=== PATIENT | female | born 1940 | race Caucasian/White ===

== ENCOUNTER 2020-03-30 16:14 | Inpatient (IN) | payer MEDICARE, SELFPAY ==
[2020-03-30] VITALS (7 sets, daily range): BP systolic 140–162; BP diastolic 56–81; PULSE 72–97; RESP 14–18; TEMP 36.4–36.9; O2SAT 97–99; BMI 20.2; BMI 19.5
--- NOTE | 2020-03-30 16:37 | EKG12_ITS ---
Test Reason : Blood Pressure : / mmHG Vent. Rate : 064 BPM Atrial Rate : 064 BPM P-R Int : 154 ms QRS Dur : 088 ms QT Int : 420 ms P-R-T Axes : 059 015 092 degrees QTc Int : 433 ms Normal sinus rhythm Normal ECG Confirmed by WILL BERMUDEZ MD ([id number]), editor house organ BISHOP LYNN ([id number] on 04/03/2020 2:22:12 PM Referred By: Walt Gates Confirmed By:WILL BERMUDEZ MD
--- NOTE | 2020-03-30 16:38 | ED.VIS.GEN ---
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 She is not able to give history. There is no family members present to speak with. She apparently was incontinent per paramedics. She acknowledges she has had weight loss. She does not know how much or over what time.. She states she is not eating well. She denies everything else. Prior similar symptoms: No Recent Illness/Hospitalization: No - Past Medical History (1) Unknown cause of injury Status: Acute Past Medical History - Allergies and Home Meds Allergies/Adverse Reactions: Allergies No Known Allergies Allergy (Verified 03/30/20 16:25) Primary Care Physician: Agus Doherty DO [Primary Care Provider] - Lives: Alone Smoking Status: Never smoker Review of Systems ROS: Unable to Obtain General: Reports: Weight loss Physical Exam Vital Signs/Narrative: Vital Signs Temp Pulse Resp BP Pulse Ox 03/30/20 16:21 98.5 F 73 16 162/81 H 98 03/30/20 16:16 98.5 F 84 16 162/81 H 98 Inital Vital Signs reviewed: Yes General: Well developed, Cachectic Head: Normocephalic, Atraumatic. Negative for: Trauma, Tenderness Eyes: Perrl, EOMI. Negative for: Pale conjunctiva, Scleral icterus ENT: No rhinorrhea, TM's clear, Dry mucous membranes. Negative for: Nasal congestion Neck: Supple, Nontender, No lymphadenopathy, No JVD Cardiovascular: Regular rate, Regular rhythm, Normal S1, Normal S2, Murmur - 82?3 systolic murmur heard best over the left lower sternal area Respiratory: No distress, Chest nontender, Rales - Left base, Retractions. Negative for: CTA bilaterally Abdomen: Soft, Nontender, Nondistended, Pulsatile mass - Aorta is pulsatile because patient is very thin. The aorta is not dilated, however. Rectal: Deferred Back: Nontender, Normal Inspection Extremities: Nontender, Edema Skin: Normal color, No rash. Negative for: Cyanosis, Diaphoresis, Jaundice Neurological: Cranial nerves II-XII grossly intact, Normal Strength, Normal Sensation, Normal DTR. Negative for: Alert, Oriented x3, Normal Gait Psychological: Depressed Diagnostic/Tx/Re-eval Impressions Brain CT 03/30/20 16:42 IMPRESSION: Chronic involutional changes of the brain. No acute hemorrhage Electronically Signed: Diaz Bergman MD at 17:19 EDT , Service support , Chest X-Ray 03/30/20 17:00 IMPRESSION: Chronic interstitial changes, no superimposed acute pulmonary process Electronically Signed: Diaz Bergman MD at 17:19 EDT , Service support , 03/30/20 16:42 CT Head [Brain/Head without Contrast] [CT] Stat 03/30/20 17:00 Chest 1 View (Portable) [RAD] Stat Laboratory Results 03/30/20 03/30/20 03/30/20 16:25 16:25 16:25 WBC 9.6 RBC 5.30 Hgb 16.1 H Hct 50.9 H MCV 96.0 MCH 30.4 MCHC 31.6 L RDW Std Deviation 49.1 H RDW Coeff of [place] 14.1 Plt Count 172 MPV 11.4 Immature Gran % (Auto) 0.700 Neut % (Auto) 82.8 H Lymph % (Auto) 8.2 L [place] % (Auto) 8.1 Eos % (Auto) 0.0 Baso % (Auto) 0.2 Absolute Neuts (auto) 7.9 H Absolute Lymphs (auto) 0.78 L Nucleated RBC % 0 PT 14.0 INR 1.1 APTT 28.0 Sodium 145 Potassium 4.2 Chloride 110 H Carbon Dioxide 25.0 Anion Gap 10 BUN 35 H Creatinine 0.72 Estim Creat Clear Calc 39.77 Est GFR (MDRD) Af Amer 101 Est GFR (MDRD) Non-Af 83 BUN/Creatinine Ratio 48.9 H Glucose 132 H Lactic Acid Calcium 9.5 Total Bilirubin 0.60 AST 22 ALT 22 Alkaline Phosphatase 84 Total Protein 7.4 Albumin 3.2 Globulin 4.2 Albumin/Globulin Ratio 0.8 L Urine Color Urine Clarity Urine pH Ur Specific [place] Urine Protein Urine Glucose (UA) Urine Ketones Urine Occult Blood Urine Nitrite Urine Bilirubin Urine Urobilinogen Ur Leukocyte Esterase Urine RBC Urine WBC Ur Squamous Epith Cells Urine Bacteria Urine Mucus 03/30/20 03/30/20 16:45 18:25 WBC RBC Hgb Hct MCV MCH MCHC RDW Std Deviation RDW Coeff of [place] Plt Count MPV Immature Gran % (Auto) Neut % (Auto) Lymph % (Auto) [place] % (Auto) Eos % (Auto) Baso % (Auto) Absolute Neuts (auto) Absolute Lymphs (auto) Nucleated RBC % PT INR APTT Sodium Potassium Chloride Carbon Dioxide Anion Gap BUN Creatinine Estim Creat Clear Calc Est GFR (MDRD) Af Amer Est GFR (MDRD) Non-Af BUN/Creatinine Ratio Glucose Lactic Acid 2.1 H* Calcium Total Bilirubin AST ALT Alkaline Phosphatase Total Protein Albumin Globulin Albumin/Globulin Ratio Urine Color Yellow Urine Clarity Clear Urine pH 6.0 Ur Specific [place] 1.030 Urine Protein 30 H Urine Glucose (UA) Normal Urine Ketones 150 H Urine Occult Blood 50 H Urine Nitrite Negative Urine Bilirubin Negative Urine Urobilinogen Normal Ur Leukocyte Esterase Negative Urine RBC 0-5 SEEN Urine WBC 0 SEEN Ur Squamous Epith Cells 0 SEEN Urine Bacteria 0 SEEN Urine Mucus 0 SEEN [place] infectious work-up is unremarkable. Patient's lactate elevated 2.1. Etiology of the lactic acidosis unknown. - EKG Initial EKG Interpretation: Sinus Rhythm - Sinus rhythm with ventricular rate of 64. [place] interval 154 ms. QRS duration 88 ms. QT duration 420 ms. [place] is normal. EKG is normal. - Medical Decision Making Presents with acute change in mental status. This may be due to metabolic cause, infectious cause or ELECTRICAL TRYOUT PERSON. [employer] blood work was obtained as well as UA, chest x-ray and CAT scan of the head. ED Disposition - Plan for ED Patient: Disposition: Acute Care Hospital [facility] Diagnosis: Altered mental status, Lactic acidosis, Weight loss, abnormal, Failure to thrive Referrals: Agus Doherty DO [Primary Care Provider] -
--- NOTE | 2020-03-30 16:42 | CT_ITS ---
STUDY: CT BRAIN WITHOUT CONTRAST REASON FOR EXAM: Female, 79 years old. INCREASED CONFUSION, INCONTINENT RADIATION DOSAGE (If Supplied By Facility): CTDIvol = ( 44.99 ) mGy, DLP = ( 748.30 ) mGycm TECHNIQUE: Transaxial CT imaging of the brain was performed without administration of intravenous contrast material. Individualized dose optimization techniques were used for this CT. COMPARISON: No relevant priors. FINDINGS: Normal soft tissue structures. Normal calvarium. There is mild cerebral atrophy with widening of the extra-axial spaces and ventricular dilatation. There are areas of decreased attenuation within the white matter tracts of the supratentorial brain, consistent with microvascular disease changes. Normal basal ganglia and thalami. Normal brainstem. Normal cerebellum. There is no intracranial hemorrhage. There are no findings of an acute ischemic infarction. Normal visualized paranasal sinuses. CT/Brain/Head without Contrast IMPRESSION: Chronic involutional changes of the brain. No acute hemorrhage Electronically Signed: Diaz Bergman MD at 17:19 EDT , Service support ,
[2020-03-30 16:56] LABS: Absolute Lymphocyte Count 0.78 X10^3/uL (0.83-4.51); Absolute Neutrophil Count 7.9 X10^3/uL (2.0-7.7); Basophil# 0.02 X10^3/uL; Basophil% 0.2 % (0-1); Hematocrit 50.9 % (37-47); Hemoglobin 16.1 g/dL (12.0-15.0); Lymphocyte # 0.78 X10^3/ul (4.0); Lymphocyte % 8.2 % (19-41); Mean Corp Hgb Conc 31.6 g/dL (32-36); Mean Corpuscular Hgb 30.4 pg (27.0-32.0); Mean Platelet Vol. 11.4 fl (6.2-12.0); Monocyte# 0.77 X10^3/uL; Monocyte% 8.1 % (0-10); NRBC Flagged by Analyzer 0 % (0-5); Neutrophil # 7.91 X10^3/uL (2.7-7.7); Neutrophil % 82.8 % (47-70); Platelet Count 172 K/mm3 (150-450); RBC Distribution Width CV 14.1 % (11.6-14.6); RBC Distribution Width SD 49.1 fl (35.1-43.9); White Blood Count 9.6 K/mm3 (4.4-11.0)
--- NOTE | 2020-03-30 17:00 | RAD_ITS ---
STUDY: X-RAY CHEST REASON FOR EXAM: Female, 79 years old. CONFUSION TECHNIQUE: Single AP portable view of the chest. COMPARISON: None. FINDINGS: Chronic interstitial changes in both lung crane without a superimposed acute pulmonary process. There is no demonstrated pleural abnormality. Normal size heart. Normal mediastinum and nereida. Normal visualized pulmonary arteries. Normal visualized aortic arch and descending thoracic aorta. There are diffuse degenerative changes of the visualized thoracic spine. There is degenerative osteoarthritis of the bilateral shoulders. There is no demonstrated abnormality of the visualized soft tissue structures of the upper abdomen. RAD/Chest 1 View (Portable) IMPRESSION: Chronic interstitial changes, no superimposed acute pulmonary process Electronically Signed: Diaz Bergman MD at 17:19 EDT , Service support ,
[2020-03-30 17:09] LABS: ALB/GLOB Ratio 0.8 RATIO (0.9-2.4); AST(SGOT) 22 U/L (15-37); Alanine Aminotransfer ALT/SGPT 22 U/L (13-56); Albumin, Serum 3.2 g/dL (3.2-5.0); Alkaline Phosphatase 84 U/L (45-117); Anion Gap 10 (5-15); BUN 35 mg/dL (7-18); BUN/Creat Ratio 48.9 RATIO (10-20); Calcium,Total 9.5 mg/dL (8.5-10.1); Chloride 110 mmol/L (98-107); Creatinine, Serum 0.72 mg/dL (0.55-1.02); EST Glomerular Filtration Rate 83 mL/min (>60); Est Glom Filt Rate - Afr Amer 101 mL/min (>60); Estimated Creatinine Clearance 39.77 ml/min; Globulin 4.2 g/dL (2.2-4.2); Glucose 132 mg/dL (74-106); Potassium 4.2 mmol/L (3.5-5.1); Protein, Total 7.4 g/dL (6.4-8.2); Sodium Level 145 mmol/L (136-145)
[2020-03-30 17:22] LABS: International Normalized Ratio 1.1
[2020-03-30 17:59] LABS: Lactic Acid 2.1 mmol/L (0.4-1.9)
[2020-03-30 18:39] LABS: Bacteria 0 SEEN /hpf (None Seen); Mucous, Urine 0 SEEN /hpf (<or=2+); Squamous Epithelial Cells - UA 0 SEEN /hpf (5-10); White Blood Cells 0 SEEN /hpf (0-5)
[2020-03-30 18:45] LABS: Color, Urine Yellow (Yellow); Glucose, Dipstick Normal (Normal); Leukocyte Esterase-Dipstick Negative /ul (Negative); Nitrite-Dipstick Negative (Negative); Occult Blood-Urine 50 /ul (Negative); Protein-Dipstick 30 mg/dl (Negative); Urine Bilirubin Dipstick Negative (Negative); Urine Clarity Clear (Clear); Urine Urobilinogen Normal (Normal)
[2020-03-30 18:57] LABS: Ketone-Dipstick 150 mg/dl (Negative); Red Blood Cells-Urine 0-5 SEEN /hpf (0-5)
--- NOTE | 2020-03-30 19:40 | PCM.HP.STD ---
Problem List (1) Altered mental status Status: Acute (2) Lactic acidosis Status: Acute (3) Weight loss, abnormal Status: Acute (4) Failure to thrive Status: Acute History of Present Illness Date of Admission: 03/30/20 Chief Complaint: ALTERED MENTAL STATUS The patient is a 79 year old F who was brought to the emergency department because of altered mental status. Reportedly patient daughter called the paramedics and patient was brought to emergency department. Per emergency department doctor's notes patient was incontinent Per paramedics. Patient appears not to be interested in providing history. When asked why she came to the hospital she stated that her legs, without giving any further details. Reportedly patient has lost weight and she admits to this. Reported patient lives at home and she is unable to take care of herself. Past Medical History Medical History: Medical History (Last Reviewed 03/30/20 @ 20:[address] Walt Gates MD) Unknown Allergies No Known Allergies Allergy (Verified 03/30/20 16:25) Home Medications: Ambulatory Orders Medication Instructions Recorded NK 03/30/20 Surgical History: - - unable to obtain as patient is minimally participatory in history taking. Lives: Alone Smoking Status: Former smoker - *Family History Maternal History Items: - - Unknown as patient is minimally participatory in history taking Paternal History Items: - - Unknown as patient is minimally participatory in history taking Review of Systems Unable to obtain accurate/complete ROS d/t: minimally participatory in history taking. Family not reachable VTE Information - Inpt Only VTE Present on Admission: No VTE Mechan Device Prophylaxis: None VTE Pharm Prophylaxis ordered?: Yes Patient Problems: Active and Suspected Problems (Last Updated 03/30/20 @ 20:[address] Walt Gates MD) Altered mental status (Acute) Lactic acidosis (Acute) Weight loss, abnormal (Acute) Failure to thrive (Acute) - Physical Exam Vitals/I&O's: Vital Signs Temp Pulse Resp BP Pulse Ox 98.2 F 72 16 143/62 H 97 03/30/20 18:11 03/30/20 18:31 03/30/20 18:31 03/30/20 18:31 03/30/20 18:31 Oxygen Delivery Method Room Air Weight: 57.1 kg Body Mass Index (BMI) 20.2 General: Alert, - - Patient is minimally participatory in history. HEENT: Atraumatic, PERRLA, EOMI, Normocephalic Oral: Dry Mucosa Neck: Supple, No JVD, Negative Carotid Bruits, Trachea Midline Lungs: Clear to auscultation, Normal air movement Cardiovascular: Regular rate, Normal S1, Normal S2, No murmurs Abdomen: Bowel Sounds Present, Soft, Non Tender Extremities: No edema, Capillary Refill Less than 3 Seconds, Tenderness - Bilateral feet. Skin: No rashes, No breakdown Musculoskeletal: No Tenderness to Palpation of Joints or Extremities Neurological: Cranial nerves II-XII grossly intact Psych/Mental Status: Normal Affect, Appropriate Laboratory Results 03/30/20 16:25: WBC 9.6, RBC 5.30, Hgb 16.1 H, Hct 50.9 H, MCV 96.0, MCH 30.4, MCHC 31.6 L, RDW Std Deviation 49.1 H, RDW Coeff of [place] 14.1, Plt Count 172, MPV 11.4, Immature Gran % (Auto) 0.700, Neut % (Auto) 82.8 H, Lymph % (Auto) 8.2 L, [place] % (Auto) 8.1, Eos % (Auto) 0.0, Baso % (Auto) 0.2, Absolute Neuts (auto) 7.9 H, Absolute Lymphs (auto) 0.78 L, Nucleated RBC % 0 03/30/20 16:25: PT 14.0, INR 1.1, APTT 28.0 03/30/20 16:25: Sodium 145, Potassium 4.2, Chloride 110 H, Carbon Dioxide 25.0, Anion Gap 10, BUN 35 H, Creatinine 0.72, Estim Creat Clear Calc 39.77, Est GFR (MDRD) Af Amer 101, Est GFR (MDRD) Non-Af 83, BUN/Creatinine Ratio 48.9 H, Glucose 132 H, Calcium 9.5, Total Bilirubin 0.60, AST 22, ALT 22, Alkaline Phosphatase 84, Total Protein 7.4, Albumin 3.2, Globulin 4.2, Albumin/Globulin Ratio 0.8 L 03/30/20 16:45: Lactic Acid 2.1 H* 03/30/20 18:25: Urine Color Yellow, Urine Clarity Clear, Urine pH 6.0, Ur Specific [place] 1.030, Urine Protein 30 H, Urine Glucose (UA) Normal, Urine Ketones 150 H, Urine Occult Blood 50 H, Urine Nitrite Negative, Urine Bilirubin Negative, Urine Urobilinogen Normal, Ur Leukocyte Esterase Negative, Urine RBC 0-5 SEEN, Urine WBC 0 SEEN, Ur Squamous Epith Cells 0 SEEN, Urine Bacteria 0 SEEN, Urine Mucus 0 SEEN Assessment/Plan All Active Problems (Last Updated 03/30/20 @ 20:[address] Walt Gates MD) Altered mental status (Acute) Lactic acidosis (Acute) Weight loss, abnormal (Acute) Failure to thrive (Acute) The patient is a 79 year old F who was brought to the emergency department because of altered mental status; incontinence and weight loss was found to have elevated lactic acid consistent with adult failure to thrive; dehydration and acute encephalopathy. Acute encephalopathy Etiology is unclear. Chest x-ray is unremarkable. Patient has no fever. Urinalysis is unremarkable. Will check vitamin B12; TSH and ammonia. Adult failure to thrive Case management consult to help with disposition. Dehydration BUN of 35 Elevated lactic acid, trend With ketonuria. IV hydration. Trend BMP. Abnormal urinalysis Proteinuria, ketonuria and occult blood in the urine. Patient can follow-up longitudinally. Bilateral feet pain and tenderness Venous duplex of bilateral lower legs. DVT prophylaxis Subcutaneous Lovenox Inpatient E&M: 60302 Init Hosp L3
[2020-03-30 20:50] LABS: Reflex Lactate? Y
--- NOTE | 2020-03-30 21:03 | NURSING ---
pt a & o x1. Pt denies all medical history and denies taking any medication. pt is unsure if she has advanced directives.
--- NOTE | 2020-03-30 21:22 | NURSING ---
Spoke with [id number] susana [phone]. Susana states the pt doesn't have any medical history and the pt only takes supplements. Susana is unsure of what supplements the pt takes. The pt is very strict with her diet. Susana is unsure of the pt's normal weight, but states the pt has lost weight. Susana is unsure if the pt has any advanced directives or a HPOA.
[2020-03-30 21:37] LABS: Lactic Acid 1.4 mmol/L (0.4-1.9)
[2020-03-30] MEDS: 0.9% Saline Lock 10 ML Syringe IV (21:38)
[2020-03-30] MEDS: 0.9% Normal Saline 1,000 ML 100 ML IV (21:40)
[2020-03-30] MEDS: Acetaminophen 325 MG Tablet 650 MG PO (23:45)
[2020-03-31 03:05] VITALS: BP 119/65; PULSE 78; RESP 16; TEMP 36.8; O2SAT 96
[2020-03-31] MEDS: 0.9% Normal Saline 1,000 ML 100 ML IV (06:53)
[2020-03-31 07:02] LABS: Absolute Lymphocyte Count 0.86 X10^3/uL (0.83-4.51); Absolute Neutrophil Count 6.4 X10^3/uL (2.0-7.7); Basophil# 0.02 X10^3/uL; Basophil% 0.2 % (0-1); Eosinophil# 0.02 X10^3/uL; Eosinophils% 0.2 % (0-5); Hematocrit 44.3 % (37-47); Hemoglobin 14.3 g/dL (12.0-15.0); Lymphocyte # 0.86 X10^3/ul (4.0); Lymphocyte % 10.3 % (19-41); Mean Corp Hgb Conc 32.3 g/dL (32-36); Mean Corpuscular Hgb 30.4 pg (27.0-32.0); Mean Corpuscular Volume 94.3 fL (81-99); Monocyte# 1.03 X10^3/uL; Monocyte% 12.4 % (0-10); NRBC Flagged by Analyzer 0 % (0-5); Neutrophil # 6.38 X10^3/uL (2.7-7.7); Neutrophil % 76.7 % (47-70); Platelet Count 154 K/mm3 (150-450); RBC Distribution Width CV 14.2 % (11.6-14.6); RBC Distribution Width SD 49.2 fl (35.1-43.9); White Blood Count 8.3 K/mm3 (4.4-11.0)
[2020-03-31 07:23] LABS: Anion Gap 5 (5-15); BUN 33 mg/dL (7-18); BUN/Creat Ratio 53.4 RATIO (10-20); Chloride 110 mmol/L (98-107); Creatinine, Serum 0.62 mg/dL (0.55-1.02); EST Glomerular Filtration Rate 98 mL/min (>60); Est Glom Filt Rate - Afr Amer 119 mL/min (>60); Estimated Creatinine Clearance 39.33 ml/min; Glucose 117 mg/dL (74-106); Potassium 3.8 mmol/L (3.5-5.1); Sodium Level 143 mmol/L (136-145)
[2020-03-31 08:11] VITALS: O2SAT 96
[2020-03-31 08:37] VITALS: BP 140/62; PULSE 73; RESP 16; TEMP 36.7; O2SAT 99
--- NOTE | 2020-03-31 08:51 | NURSING ---
Update given to Susana, patient's [id number]. She states she will relay info to patient's son and daughter.
--- NOTE | 2020-03-31 09:33 | PN_ITS ---
Patient Problems: Active and Suspected Problems (Last Reviewed 03/30/20 @ 20:[address] Walt Gates MD) Altered mental status (Acute) Lactic acidosis (Acute) Weight loss, abnormal (Acute) Failure to thrive (Acute) Subjective: Patient seen and examined. She was admitted for acute metabolic encephalopathy after her daughter called the paramedics. She only complains of weakness in her legs today. She denies fever, chills, shortness of breath, nausea, vomiting or diarrhea. Review of systems otherwise negative. She has remained hemodynamically stable. She tells me she lives alone and is independent, and able carry out her activities of daily living, and balance her checkbook. She has a very flat affect and masked facies during review. Vitals/I&O's: Vital Signs Temp Pulse Resp BP Pulse Ox 98.1 F 73 16 140/62 H 99 03/31/20 08:37 03/31/20 08:37 03/31/20 08:37 03/31/20 08:37 03/31/20 08:37 Oxygen Delivery Method Room Air Weight: 124 lb 8 oz Body Mass Index (BMI) 19.5 Intake and Output for Last 24 Hours 03/29/20 03/30/20 03/31/20 23:59 23:59 23:59 Intake Total 500 / 1000 1821.67 / 1821.67 Output Total 800 / 800 Balance 500 / 600 1021.67 / 1021.67 General: Alert, Oriented x3, Cooperative, No apparent distress HEENT: Atraumatic, PERRLA, EOMI, Normocephalic Oral: Dry Mucosa Neck: Supple, No JVD, Negative Carotid Bruits Lungs: Clear to auscultation, Normal air movement Cardiovascular: Regular rate, Regular Rhythm, Normal S1, Normal S2, No murmurs Abdomen: Bowel Sounds Present, Soft, Non Tender Extremities: No edema, Capillary Refill Less than 3 Seconds Skin: No rashes, No breakdown Musculoskeletal: No Tenderness to Palpation of Joints or Extremities Lymphatic: No Cervical, Supraclavicular, or Inguinal Adenopathy Neurological: Cranial nerves II-XII grossly intact, Neuro grossly intact, Motor Exam 5/5 strength throughout Psych/Mental Status: Flat Affect, - - masked facies Laboratory Results 03/30/20 16:25: WBC 9.6, RBC 5.30, Hgb 16.1 H, Hct 50.9 H, MCV 96.0, MCH 30.4, MCHC 31.6 L, RDW Std Deviation 49.1 H, RDW Coeff of [place] 14.1, Plt Count 172, MPV 11.4, Immature Gran % (Auto) 0.700, Neut % (Auto) 82.8 H, Lymph % (Auto) 8.2 L, [place] % (Auto) 8.1, Eos % (Auto) 0.0, Baso % (Auto) 0.2, Absolute Neuts (auto) 7.9 H, Absolute Lymphs (auto) 0.78 L, Nucleated RBC % 0 03/30/20 16:25: PT 14.0, INR 1.1, APTT 28.0 03/30/20 16:25: Sodium 145, Potassium 4.2, Chloride 110 H, Carbon Dioxide 25.0, Anion Gap 10, BUN 35 H, Creatinine 0.72, Estim Creat Clear Calc 39.77, Est GFR (MDRD) Af Amer 101, Est GFR (MDRD) Non-Af 83, BUN/Creatinine Ratio 48.9 H, Glucose 132 H, Calcium 9.5, Total Bilirubin 0.60, AST 22, ALT 22, Alkaline Phosphatase 84, Total Protein 7.4, Albumin 3.2, Globulin 4.2, Albumin/Globulin Ratio 0.8 L 03/30/20 16:25: TSH 0.60 03/30/20 16:45: Lactic Acid 2.1 H* 03/30/20 18:25: Urine Color Yellow, Urine Clarity Clear, Urine pH 6.0, Ur Specific [place] 1.030, Urine Protein 30 H, Urine Glucose (UA) Normal, Urine Ketones 150 H, Urine Occult Blood 50 H, Urine Nitrite Negative, Urine Bilirubin Negative, Urine Urobilinogen Normal, Ur Leukocyte Esterase Negative, Urine RBC 0-5 SEEN, Urine WBC 0 SEEN, Ur Squamous Epith Cells 0 SEEN, Urine Bacteria 0 SEEN, Urine Mucus 0 SEEN 03/30/20 20:57: Lactic Acid 1.4 03/30/20 20:57: Vitamin B12 Pending 03/30/20 22:11: [place] 16.0 03/31/20 06:40: WBC 8.3, RBC 4.70, Hgb 14.3, Hct 44.3, MCV 94.3, MCH 30.4, MCHC 32.3, RDW Std Deviation 49.2 H, RDW Coeff of [place] 14.2, Plt Count 154, MPV 11.0, Immature Gran % (Auto) 0.200, Neut % (Auto) 76.7 H, Lymph % (Auto) 10.3 L, [place] % (Auto) 12.4 H, Eos % (Auto) 0.2, Baso % (Auto) 0.2, Absolute Neuts (auto) 6.4, Absolute Lymphs (auto) 0.86, Nucleated RBC % 0 03/31/20 06:40: Sodium 143, Potassium 3.8, Chloride 110 H, Carbon Dioxide 28.0, Anion Gap 5, BUN 33 H, Creatinine 0.62, Estim Creat Clear Calc 39.33, Est GFR (MDRD) Af Amer 119, Est GFR (MDRD) Non-Af 98, BUN/Creatinine Ratio 53.4 H, Glucose 117 H, Calcium 9.[address] 03/30/20 16:42 IMPRESSION: Chronic involutional changes of the brain. No acute hemorrhage Electronically Signed: Diaz Bergman MD at 17:19 EDT , Service support , Chest X-Ray 03/30/20 17:00 IMPRESSION: Chronic interstitial changes, no superimposed acute pulmonary process Electronically Signed: Diaz Bergman MD at 17:19 EDT , Service support , Current Medications Acetaminophen (Tylenol) 650 mg PO Q6H PRN PRN PRN Reason: Pain Score 1-10/Temp > 100.7 F Last Admin: 03/30/20 23:45 Dose: 650 mg Documented by: Calamine/Phenol (Calmoseptine Ointment) 1 applic TOPICAL BID MADELAINE; Protocol Dextrose (D50w Syringe) 0 gm IV X1 PRN; Protocol PRN Reason: Hypoglycemia Enoxaparin Sodium (Lovenox) 40 mg SC DAILY MADELAINE Glucagon () 1 mg IM .X1 PRN PRN Reason: Hypoglycemia Sodium Chloride () 250 mls @ 15 mls/hr IV .[id number] PRN PRN Reason: Saline Flush Sodium Chloride () 250 mls @ 15 mls/hr IV .[id number] PRN PRN Reason: Additional IVPB Infusion Sodium Chloride () 1,000 mls @ 100 mls/hr IV .Q10H [facility] Last Admin: 03/31/20 06:53 Dose: 100 mls/hr Documented by: Nutritional Formula (Lactose Free) (Ensure Enlive) 120 ml PO 4X/DAY [facility] Last Admin: 03/30/20 23:20 Dose: 120 ml Documented by: Ondansetron HCl (Zofran) 4 mg IV Q8H PRN PRN PRN Reason: NAUSEA/VOMITING Sodium Chloride () 10 - 40 ml IV UD PRN PRN Reason: SALINE FLUSH Last Admin: 03/30/20 21:38 Dose: 10 ml Documented by: STROKE Vital Signs/Narrative: Vital Signs Temp Pulse Resp BP Pulse Ox 03/31/20 08:37 98.1 F 73 16 140/62 H 99 03/31/20 08:11 96 Medical Necessity - Tobacco Use Smoking Status: Never smoker Assessment/Plan All Active Problems (Last Reviewed 03/30/20 @ 20:[address] Walt Gates MD) Altered mental status (Acute) Lactic acidosis (Acute) Weight loss, abnormal (Acute) Failure to thrive (Acute) 1. Acute metabolic encephalopathy * patient alert and oriented x 3, though she has a masked facies and flat affect * lactic acid was slightly elevated at 2.1; has trended down to 1.4 with IVF * UA was negative, TSH was WNL and Vitamin B12 is pending. * CT of the brain was also negative. * PT/OT consulted * I think patient may be developing underlying dementia; will await PT/OT e valuation * 2. Dehydration likely due to decreased intake * lactic acid was 2.1 * now down to 1.4 with hdyrateion * continue gentle hydration with IVF * encourage liberal oral hydration * 3. Bilateral LE pain * venous duplex ordered on admission * will order CPK as UA has blood but no rbc, to r/o rhabdomyolysis * 4. Adult failure to thrive * BMI is 19.5; per admitting note, daughter said patient has lost weight. Patient tells me everyone wants to lose weight. * nutrition consulted * case management consulted to help with discharge planning * DVT prophylaxis: lovenox Inpatient E&M: 49960 Subs Hosp L2
--- NOTE | 2020-03-31 10:35 | NURSING ---
Tonja RN spoke with family who reported that since covid pandemic began, pt had been more and more paranoid and displaying more erratic behaviors. this was discussed with Dr Whiteside and discussed maryjo-psych consult. called crisis and spoke with Deepa who explained that they cannot eval patient for maryjo-psych until pt is medically cleared for discharge. notified primary RN and Dr Whiteside.
[2020-03-31 10:46] LABS: CPK Total, Creatine Kinase 107 U/L (26-192)
--- NOTE | 2020-03-31 10:58 | NURSING ---
Update given to Susana in regards to Melodie-psych consult, patient refusing meds, venous duplex, etc. Susana states that this would not be atypical behavior. She states that her [id number] is usually very cautious and can be suspicious. Will update with PT/OT later in the day.
--- NOTE | 2020-03-31 11:28 | CASEMGMT ---
Social Work Notified by nursing staff that patient family is seeking clarification on discharge planning process and possible resources. Nursing staff reporting that patient [id number], Susana is main contact for patient. Telephone call to Susana, Introduced self as well as healthcare social worker role. Susana agreeable to speaking with this healthcare social worker and placing this healthcare social worker on speaker phone so patient son, Tho could be updated on any questions. Susana and Tho inquiring about Melodie-Psych versus Longterm versus Home. Susana stating concern with long-term placement due to current COVID-19 pandemic but also concern with patient returning to home as patient was not functioning well at home alone. Educated Susana and Tho on community resource options such as private duty aides and skilled home health care. Susana stating that family is planning to get together and discuss plan if patient returns to home. Susana and Tho aware that patient is pending therapy evaluation and Melodie-Psych assessment by crisis and that no official recommendation has been made at this time. Rickie thanking this healthcare social worker discussing options. Rickie clarifying that they are open to long-term placement if this is the safest option for patient, but are nervous about this option due to current pandemic. Active support provided. Social Work to continue to follow as needed. Percy PORTILLO, AUDIE
[2020-03-31 14:11] VITALS: BP 135/63; PULSE 55; RESP 16; TEMP 36.7; O2SAT 99
--- NOTE | 2020-03-31 14:20 | NURSING ---
Attempted to feed patient breakfast and lunch. She refuses all oral intake. Got recommendations from patient's daughter in law on what she thought patient would like to eat and ordered some of those things. Patient still continues to refuse. Even refusing water.
[2020-03-31] MEDS: Dextrose 5%/0.9% NaCl 1,000 ML 75 ML IV (16:08)
--- NOTE | 2020-03-31 18:22 | NURSING ---
Update given to patient's daughter in law Susana at this time.
[2020-03-31 20:49] VITALS: BP 163/70; PULSE 52; RESP 16; TEMP 36.9; O2SAT 98
[2020-04-01 03:19] VITALS: BP 161/69; PULSE 55; RESP 16; TEMP 37; O2SAT 98
[2020-04-01] MEDS: Dextrose 5%/0.9% NaCl 1,000 ML 75 ML IV ×2 (05:40→17:41)
[2020-04-01 09:19] VITALS: BP 140/64; PULSE 58; RESP 16; TEMP 36.6; O2SAT 98
--- NOTE | 2020-04-01 11:30 | PN_ITS ---
<Marybel Stout - Last Filed: 04/01/20 11:41> Patient Problems: Active and Suspected Problems (Last Reviewed 03/30/20 @ 20:[address] Walt Gates MD) Altered mental status (Acute) Lactic acidosis (Acute) Weight loss, abnormal (Acute) Failure to thrive (Acute) Subjective: Patient seen and examined. Answered orientation questions appropriately. Does not want to get out of bed with therapy. States her legs feel like bricks. Denies other symptoms or complaints. - Physical Exam Vitals/I&O's: Vital Signs Temp Pulse Resp BP Pulse Ox 98.6 F 55 L 16 161/69 H 98 04/01/20 03:19 04/01/20 03:19 04/01/20 03:19 04/01/20 03:19 04/01/20 03:19 Oxygen Delivery Method Room Air Weight: 124 lb 7.991 oz Body Mass Index (BMI) 19.5 Intake and Output for Last 24 Hours 03/30/20 03/31/20 04/01/20 23:59 23:59 23:59 Intake Total 500 / 1000 2746.67 / 2746.67 1000 / 1000 Output Total 1800 / 1800 200 / 200 Balance 500 / 600 946.67 / 946.67 800 / 800 General: Alert, Oriented x3, Cooperative HEENT: Atraumatic, PERRLA, EOMI, Normocephalic Oral: Dry Mucosa Neck: Supple, No JVD, Negative Carotid Bruits Lungs: Clear to auscultation, Normal air movement Cardiovascular: Regular rate, Regular Rhythm, Normal S1, Normal S2, No murmurs Abdomen: Bowel Sounds Present, Soft, Non Tender, Non-Distended Extremities: No clubbing, No cyanosis, No edema, Capillary Refill Less than 3 Seconds Skin: No rashes, No breakdown Musculoskeletal: No Tenderness to Palpation of Joints or Extremities, Cachexia, Muscle Wasting Neurological: Cranial nerves II-XII grossly intact, Neuro grossly intact Psych/Mental Status: Flat Affect Current Medications Acetaminophen (Tylenol) 650 mg PO Q6H PRN PRN PRN Reason: Pain Score 1-10/Temp > 100.7 F Last Admin: 03/30/20 23:45 Dose: 650 mg Documented by: Calamine/Phenol (Calmoseptine Ointment) 1 applic TOPICAL BID [facility]; Protocol Last Admin: 03/31/20 21:27 Dose: Not Given Documented by: Dextrose (D50w Syringe) 0 gm IV X1 PRN; Protocol PRN Reason: Hypoglycemia Enoxaparin Sodium (Lovenox) 40 mg SC DAILY [facility] Last Admin: 03/31/20 09:40 Dose: Not Given Documented by: Glucagon () 1 mg IM .X1 PRN PRN Reason: Hypoglycemia Sodium Chloride () 250 mls @ 15 mls/hr IV .[id number] PRN PRN Reason: Saline Flush Sodium Chloride () 250 mls @ 15 mls/hr IV .[id number] PRN PRN Reason: Additional IVPB Infusion Dextrose/Sodium Chloride (Dextrose 5%/0.9% Nacl) 1,000 mls @ 75 mls/hr IV .[id number] [facility] Last Admin: 04/01/20 05:40 Dose: 75 mls/hr Documented by: Nutritional Formula (Lactose Free) (Ensure Enlive) 120 ml PO 4X/DAY [facility] Last Admin: 03/31/20 21:27 Dose: Not Given Documented by: Ondansetron HCl (Zofran) 4 mg IV Q8H PRN PRN PRN Reason: NAUSEA/VOMITING Sodium Chloride () 10 - 40 ml IV UD PRN PRN Reason: SALINE FLUSH Last Admin: 03/30/20 21:38 Dose: 10 ml Documented by: Medical Necessity - Tobacco Use Smoking Status: Never smoker Assessment/Plan All Active Problems (Last Reviewed 03/30/20 @ 20:[address] Walt Gates MD) Altered mental status (Acute) Lactic acidosis (Acute) Weight loss, abnormal (Acute) Failure to thrive (Acute) 1. Acute metabolic encephalopathy-brain CT with chronic changes. No evidence of infectious process. Possibly due to underlying dementia. 2. Cognitive impairment-patient alert and oriented during assessment today however per nursing patient refuses medication and treatments and is intermittently nonverbal, forgetful. Suspect underlying dementia. [facility] consult pending. 3. Failure to thrive/debility- PT/OT. Dietitian consult. Check a vitamin D level. 4. Dehydration-suspect secondary to poor oral intake related to #1/#2. Improved with IV fluids. 5. Bilateral lower extremity pain-lower extremity Dopplers ordered however patient refused. Check magnesium. DVT prophylaxis-Lovenox subcu Discharge planning: [facility] evaluation pending versus SNF. This patient was seen by CARLIE Lora under the supervision of Dr. Whiteside. <Earlene Whiteside - Last Filed: 04/01/20 16:54> - Physical Exam Vitals/I&O's: Vital Signs Temp Pulse Resp BP Pulse Ox 98.6 F 55 L 16 161/69 H 97 04/01/20 03:19 04/01/20 03:19 04/01/20 03:19 04/01/20 03:19 04/01/20 12:55 Oxygen Delivery Method Room Air Weight: 124 lb 7.991 oz Body Mass Index (BMI) 19.5 Intake and Output for Last 24 Hours 03/30/20 03/31/20 04/01/20 23:59 23:59 23:59 Intake Total 500 / 1000 2746.67 / 2746.67 1675 / 1675 Output Total 1800 / 1800 400 / 400 Balance 500 / 600 946.67 / 946.67 1275 / 1275 Laboratory Results 03/30/20 15:40: Vitamin D 25-Hydroxy Pending 03/31/20 06:40: Magnesium 2.1 Current Medications Acetaminophen (Tylenol) 650 mg PO Q6H PRN PRN PRN Reason: Pain Score 1-10/Temp > 100.7 F Last Admin: 03/30/20 23:45 Dose: 650 mg Documented by: Calamine/Phenol (Calmoseptine Ointment) 1 applic TOPICAL BID [facility]; Protocol Last Admin: 04/01/20 12:12 Dose: 1 applic Documented by: Dextrose (D50w Syringe) 0 gm IV X1 PRN; Protocol PRN Reason: Hypoglycemia Enoxaparin Sodium (Lovenox) 40 mg SC DAILY [facility] Last Admin: 04/01/20 12:13 Dose: 40 mg Documented by: Glucagon () 1 mg IM .X1 PRN PRN Reason: Hypoglycemia Sodium Chloride () 250 mls @ 15 mls/hr IV .[id number] PRN PRN Reason: Saline Flush Sodium Chloride () 250 mls @ 15 mls/hr IV .[id number] PRN PRN Reason: Additional IVPB Infusion Dextrose/Sodium Chloride (Dextrose 5%/0.9% Nacl) 1,000 mls @ 75 mls/hr IV .[id number] [facility] Last Infusion: 04/01/20 16:26 Dose: 75 mls/hr Documented by: Nutritional Formula (Lactose Free) (Ensure Enlive) 120 ml PO 4X/DAY [facility] Last Admin: 04/01/20 15:48 Dose: Not Given Documented by: Ondansetron HCl (Zofran) 4 mg IV Q8H PRN PRN PRN Reason: NAUSEA/VOMITING Sodium Chloride () 10 - 40 ml IV UD PRN PRN Reason: SALINE FLUSH Last Admin: 03/30/20 21:38 Dose: 10 ml Documented by: Assessment/Plan Patient seen by CARLIE Lora under my supervision. Patient seen and examined. She has no complaints today. No active events overnight per discussion with her nurse. Patient awaiting [facility] evaluation. She has been refusing to take her meds and has been refusing to eat. Labs and vitals reviewed. o/e: Vital Signs Temp Pulse Resp BP Pulse Ox 98.6 F 55 L 16 161/69 H 97 04/01/20 03:19 04/01/20 03:19 04/01/20 03:19 04/01/20 03:19 04/01/20 12:55 Plan is to have [facility] evaluation. PT OT on board. Dietitian consulted. Patient will likely need SNF placement versus [facility] inpatient evaluation. Rest as per Marybel ELIZONDOC's note, which I have reviewed and endorsed. Inpatient E&M: 72539 Subs Hosp L2
[2020-04-01 12:01] LABS: Magnesium 2.1 mg/dL (1.6-2.6)
[2020-04-01] MEDS: Menthol/Lanolin/Calamine/Znox 113 GM Tube 1 APPLIC TOPICAL ×2 (12:12→23:10)
[2020-04-01] MEDS: Enoxaparin 40 MG/0.4 ML Syringe SC (12:13)
[2020-04-01 12:55] VITALS: O2SAT 97
[2020-04-01 15:19] VITALS: BP 132/59; PULSE 56; RESP 16; TEMP 37.1; O2SAT 97
[2020-04-01] MEDS: 0.9% Saline Lock 10 ML Syringe IV (17:40)
[2020-04-01] MEDS: Ondansetron 4 MG/2 ML Vial IV (17:46)
[2020-04-01 23:09] VITALS: BP 112/50; PULSE 66; RESP 16; TEMP 36.6; O2SAT 96
[2020-04-02 03:21] VITALS: BP 119/61; PULSE 70; RESP 16; TEMP 36.8; O2SAT 100
[2020-04-02] MEDS: Dextrose 5%/0.9% NaCl 1,000 ML 75 ML IV (06:42)
[2020-04-02 09:16] LABS: Vitamin D,25 Hydroxy 57.9 ng/mL
[2020-04-02 09:24] LABS: Vitamin B12 > 2000 pg/mL (211-911)
[2020-04-02 09:32] VITALS: BP 116/54; PULSE 51; RESP 16; TEMP 36.7; O2SAT 96
[2020-04-02 09:40] VITALS: PULSE 50
[2020-04-02] MEDS: Menthol/Lanolin/Calamine/Znox 113 GM Tube 1 APPLIC TOPICAL ×2 (09:53→21:45)
--- NOTE | 2020-04-02 10:43 | NURSING ---
[id number] this nurse spoke with Antoine Ryan, informed him she refused food, and the lovenox shot. He requested to speak to the patient, the pt refused to speak to him. Antoine said he would contact Dr. Yusuf and come up with a plan.
--- NOTE | 2020-04-02 11:55 | PN_ITS ---
<Marybel Stout - Last Filed: 04/02/20 12:00> Patient Problems: Active and Suspected Problems (Last Reviewed 03/30/20 @ 20:[address] Walt Gates MD) Altered mental status (Acute) Lactic acidosis (Acute) Weight loss, abnormal (Acute) Failure to thrive (Acute) Subjective: Patient seen and examined. Resting comfortably in bed. Continues to be alert and oriented however continuing to have severe paranoia. Refusing to eat due to believing hospital food is poisoned. Refusing medications and medical care. Aw aiting facility placement for [facility] evaluation. - Physical Exam Vitals/I&O's: Vital Signs Temp Pulse Resp BP Pulse Ox 98.1 F 50 L 16 116/54 L 96 04/02/20 09:32 04/02/20 09:40 04/02/20 09:32 04/02/20 09:32 04/02/20 09:32 Oxygen Delivery Method Room Air Weight: 124 lb 7.991 oz Body Mass Index (BMI) 19.5 Intake and Output for Last 24 Hours 03/31/20 04/01/20 04/02/20 23:59 23:59 23:59 Intake Total 2746.67 / 2746.67 0 / 0 1216.25 / 1216.25 Output Total 1800 / 1800 1800 / 1800 475 / 475 Balance 946.67 / 946.67 250 / 250 741.25 / 741.25 General: Alert, Oriented x3, Cooperative HEENT: Atraumatic, PERRLA, EOMI, Normocephalic Oral: Dry Mucosa Neck: Supple, No JVD, Negative Carotid Bruits Lungs: Clear to auscultation, Normal air movement Cardiovascular: Regular rate, No murmurs Abdomen: Bowel Sounds Present, Soft, Non Tender Extremities: No edema, Capillary Refill Less than 3 Seconds Skin: No rashes, No breakdown Musculoskeletal: No Tenderness to Palpation of Joints or Extremities, Cachexia, Muscle Wasting Neurological: Cranial nerves II-XII grossly intact, Neuro grossly intact Psych/Mental Status: Flat Affect Laboratory Results 03/30/20 15:40: Vitamin D 25-Hydroxy 57.9 03/30/20 20:57: Vitamin B12 > 2000 H 03/31/20 06:40: Magnesium 2.1 Current Medications Acetaminophen (Tylenol) 650 mg PO Q6H PRN PRN PRN Reason: Pain Score 1-10/Temp > 100.7 F Last Admin: 03/30/20 23:45 Dose: 650 mg Documented by: Calamine/Phenol (Calmoseptine Ointment) 1 applic TOPICAL BID [facility]; Protocol Last Admin: 04/02/20 09:53 Dose: 1 applic Documented by: Dextrose (D50w Syringe) 0 gm IV X1 PRN; Protocol PRN Reason: Hypoglycemia Enoxaparin Sodium (Lovenox) 40 mg SC DAILY [facility] Last Admin: 04/02/20 09:53 Dose: Not Given Documented by: Glucagon () 1 mg IM .X1 PRN PRN Reason: Hypoglycemia Sodium Chloride () 250 mls @ 15 mls/hr IV .[id number] PRN PRN Reason: Saline Flush Sodium Chloride () 250 mls @ 15 mls/hr IV .[id number] PRN PRN Reason: Additional IVPB Infusion Dextrose/Sodium Chloride (Dextrose 5%/0.9% Nacl) 1,000 mls @ 75 mls/hr IV .[id number] [facility] Last Infusion: 04/02/20 09:54 Dose: 0 mls/hr Documented by: Nutritional Formula (Lactose Free) (Ensure Enlive) 120 ml PO 4X/DAY [facility] Last Admin: 04/02/20 09:52 Dose: 120 ml Documented by: Ondansetron HCl (Zofran) 4 mg IV Q8H PRN PRN PRN Reason: NAUSEA/VOMITING Last Admin: 04/01/20 17:46 Dose: 4 mg Documented by: Sodium Chloride () 10 - 40 ml IV UD PRN PRN Reason: SALINE FLUSH Last Admin: 04/01/20 17:40 Dose: 10 ml Documented by: Medical Necessity - Tobacco Use Smoking Status: Never smoker Assessment/Plan All Active Problems (Last Reviewed 03/30/20 @ 20:[address] Walt Gates MD) Altered mental status (Acute) Lactic acidosis (Acute) Weight loss, abnormal (Acute) Failure to thrive (Acute) 1. Acute metabolic encephalopathy-ruled out. Brain CT with chronic changes. No evidence of infectious process. Suspect due to underlying dementia/psychiatric process. Plan for [facility] placement. Metabolic/infectious/toxic etiology ruled out. 2. Cognitive impairment-patient alert and oriented during assessment today however per nursing patient refuses medication and treatments and is having extreme paranoia. Suspect underlying dementia/versus other underlying psychiatric process. [facility] consulted. Plan for placement pending facility availability and acceptance. Reagan slip obtained due to imminent concern for patient safety and patient is unable to provide basic needs for herself. 3. Failure to thrive/debility- PT/OT. Dietitian consult. Vitamin D level checked which was sufficient. 4. Dehydration-suspect secondary to poor oral intake related to #1/#2. Improved with IV fluids. 5. Bilateral lower extremity pain-lower extremity Dopplers ordered however patient refused. DVT prophylaxis-Lovenox subcu Discharge planning: [facility] placement pending facility acceptance. This patient was seen by CARLIE Lora under the supervision of Dr. Whiteside. <Earlene Whiteside - Last Filed: 04/02/20 12:55> - Physical Exam Vitals/I&O's: Vital Signs Temp Pulse Resp BP Pulse Ox 98.1 F 50 L 16 116/54 L 96 04/02/20 09:32 04/02/20 09:40 04/02/20 09:32 04/02/20 09:32 04/02/20 09:32 Oxygen Delivery Method Room Air Weight: 124 lb 7.991 oz Body Mass Index (BMI) 19.5 Intake and Output for Last 24 Hours 03/31/20 04/01/20 04/02/20 23:59 23:59 23:59 Intake Total 2746.67 / 2746.67 2049 / 2049 1216.25 / 1216.25 Output Total 1800 / 1800 1800 / 1800 875 / 875 Balance 946.67 / 946.67 250 / 250 341.25 / 341.25 Laboratory Results 03/30/20 15:40: Vitamin D 25-Hydroxy 57.9 03/30/20 20:57: Vitamin B12 > 2000 H Current Medications Acetaminophen (Tylenol) 650 mg PO Q6H PRN PRN PRN Reason: Pain Score 1-10/Temp > 100.7 F Last Admin: 03/30/20 23:45 Dose: 650 mg Documented by: Calamine/Phenol (Calmoseptine Ointment) 1 applic TOPICAL BID [facility]; Protocol Last Admin: 04/02/20 09:53 Dose: 1 applic Documented by: Dextrose (D50w Syringe) 0 gm IV X1 PRN; Protocol PRN Reason: Hypoglycemia Enoxaparin Sodium (Lovenox) 40 mg SC DAILY [facility] Last Admin: 04/02/20 09:53 Dose: Not Given Documented by: Glucagon () 1 mg IM .X1 PRN PRN Reason: Hypoglycemia Sodium Chloride () 250 mls @ 15 mls/hr IV .[id number] PRN PRN Reason: Saline Flush Sodium Chloride () 250 mls @ 15 mls/hr IV .[id number] PRN PRN Reason: Additional IVPB Infusion Dextrose/Sodium Chloride (Dextrose 5%/0.9% Nacl) 1,000 mls @ 75 mls/hr IV .[id number] [facility] Last Infusion: 04/02/20 09:54 Dose: 0 mls/hr Documented by: Nutritional Formula (Lactose Free) (Ensure Enlive) 120 ml PO 4X/DAY [facility] Last Admin: 04/02/20 09:52 Dose: 120 ml Documented by: Ondansetron HCl (Zofran) 4 mg IV Q8H PRN PRN PRN Reason: NAUSEA/VOMITING Last Admin: 04/01/20 17:46 Dose: 4 mg Documented by: Sodium Chloride () 10 - 40 ml IV UD PRN PRN Reason: SALINE FLUSH Last Admin: 04/01/20 17:40 Dose: 10 ml Documented by: Assessment/Plan Patient seen by Marybel SEXTON under my supervision Patient seen and examined. She has no complaints today. She is alert and able to talk to me, and says she just wants to go home. She has however been reported to be very paranoid, and has been refusing medications. Review of systems otherwise negative. O/E: Vital Signs Temp Pulse Resp BP Pulse Ox 98.1 F 50 L 16 116/54 L 96 04/02/20 09:32 04/02/20 09:40 04/02/20 09:32 04/02/20 09:32 04/02/20 09:32 General: Alert, Oriented x3, Cooperative, No apparent distress HEENT: Atraumatic, PERRLA, EOMI, Normocephalic Oral: Dry Mucosa Neck: Supple, No JVD, Negative Carotid Bruits Lungs: Clear to auscultation, Normal air movement Cardiovascular: Regular rate, Regular Rhythm, Normal S1, Normal S2, No murmurs Abdomen: Bowel Sounds Present, Soft, Non Tender Extremities: No edema, Capillary Refill Less than 3 Seconds Skin: No rashes, No breakdown Musculoskeletal: No Tenderness to Palpation of Joints or Extremities Lymphatic: No Cervical, Supraclavicular, or Inguinal Adenopathy Neurological: Cranial nerves II-XII grossly intact, Neuro grossly intact, Motor Exam 5/5 strength throughout Psych/Mental Status: Flat Affect, Patient has been refusing to talk to the [facility] team. I discussed with the [facility] counselor- Antoine Ryan, about plan of care; plan is to pink slip patient as she is not safe to go home. [facility] in a facility. Patient noted to be mildly bradycardic, with HR going down to the 50s. She has remained asymptomatic. Will monitor Rest as per Marybel Stout SHIFT FOREMAN-C's note, which I have reviewed and endorsed. Inpatient E&M: 24584 Subs Hosp L2
--- NOTE | 2020-04-02 12:10 | NURSING ---
1145 Spoke with son Tho and discussed the potential plans for her.
[2020-04-02 14:07] VITALS: BP 142/56; PULSE 51; RESP 16; TEMP 36.4; O2SAT 98
[2020-04-02 17:26] VITALS: PULSE 50
[2020-04-02 19:44] VITALS: BP 106/52; PULSE 54; RESP 16; TEMP 36.9; O2SAT 97
--- NOTE | 2020-04-02 22:42 | NURSING ---
[facility] called in to report that he is waiting to hear from [facility] [place] about this pt.
[2020-04-03 02:10] VITALS: BP 141/64; PULSE 66; RESP 16; TEMP 36.9; O2SAT 96
[2020-04-03 08:08] VITALS: BP 137/67; PULSE 58; RESP 16; TEMP 36.8; O2SAT 95
[2020-04-03] MEDS: Menthol/Lanolin/Calamine/Znox 113 GM Tube 1 APPLIC TOPICAL (08:15)
[2020-04-03] MEDS: Enoxaparin 40 MG/0.4 ML Syringe SC (08:15)
--- NOTE | 2020-04-03 08:19 | NURSING ---
Attempted to assist pt with breakfast. Patient took a couple bites of oatmeal, and drank ensure. Refused to eat/ drink anything else.
[2020-04-03 08:21] VITALS: PULSE 58
--- NOTE | 2020-04-03 08:59 | NURSING ---
Spoke with Daughter Susana on phone this morning and update given.
--- NOTE | 2020-04-03 09:26 | CASEMGMT ---
Social Work Note RN updated this worker that pt's ZACH Meza is on the phone requesting update. KACEY spoke with Susana. Susana states she was the updated that pt may get transferred to [facility] today. KACEY updated Susana that this worker is new to patient unsure where [facility] is at regarding placement but [facility] will update [facility] once they figure out plan for pt. Susana asked about pt completing HCPOA. KACEY informed Susana that pt would need to be alert and orientated x3, able to comprehend document to be able to complete while at [facility]. KACEY updated Susaan that per handoff communications, it was charted that pt was only alert and orientated x1-2 this morning. Pt was also brought to [facility] ED for altered mental status, saying odd things and being paranoid. KACEY updated Susana that this worker can check with pt regarding current mental status and if appropriate could ask pt about HCPOA and if pt would be willing to complete documents. KACEY updated Susana that if pt is not willing to complete documents, then this worker cannot make pt complete or if pt is not alert and orientated, unable to comprehend documents then documents wouldn't be able to be completed as well. Susana asked about speaking/seeing pt. Susana states staff tried to get pt to speak on the phone yesterday to family but pt refused, Susana states pt has fear of phones. KACEY informed Susana that this worker could check with staff about video phone call but is not sure if that is an option. Susana and Tho then asked if pt does get transported to [facility] today if they could see pt before pt discharges either at the ambulance or entrance to say bye to pt. KACEY informed Susana and Tho that this worker is not sure if that could happen but will also ask staff. Susana asked to be updated. KACEY spoke with RN. RN states pt is more alert and orientated x3 today but doesn't think pt is able to comprehend HCPOA documents at this time. KACEY will speak with CALEB Chavez regarding HCPOA and also speak with pt. KACEY waiting for Crisis update regarding [facility] placement. Ana Luisa [address] TESTER, [facility] SPECIALIST
[2020-04-03 09:28] LABS: Amphetamine Urine VISTA NEGATIVE (<1000 ng/mL); Barbiturate Urine VISTA NEGATIVE (< 200 ng/mL); Benzodiazepine Urine VISTA NEGATIVE (< 200 ng/mL); Cocaine Urine VISTA NEGATIVE (< 300 ng/mL); Ecstacy Urine VISTA NEGATIVE (< 500 ng/mL); Methadone Urine VISTA NEGATIVE (< 300 ng/mL); PCP Urine VISTA NEGATIVE (< 25 ng/mL); THC Urine VISTA NEGATIVE (< 50 ng/mL); Vista UDS pH Range 6
--- NOTE | 2020-04-03 10:32 | NURSING ---
faxed urine tox report and covid questions to [facility]
--- NOTE | 2020-04-03 10:46 | PN_ITS ---
<Marybel Stout - Last Filed: 04/03/20 10:59> Subjective: Patient seen and examined. Resting in chair. Minimally verbal today. She did state she had some oatmeal for breakfast. Otherwise non-verbal during questions/exam. - Physical Exam Vitals/I&O's: Vital Signs Temp Pulse Resp BP Pulse Ox 98.2 F 58 L 16 137/67 H 95 04/03/20 08:08 04/03/20 08:21 04/03/20 08:08 04/03/20 08:08 04/03/20 08:08 Oxygen Delivery Method Room Air Weight: 124 lb 7.991 oz Body Mass Index (BMI) 19.5 Intake and Output for Last 24 Hours 04/01/20 04/02/20 04/03/20 23:59 23:59 23:59 Intake Total 2049 / 0 1336.25 / 1336.25 Output Total 1800 / 1800 1105 / 1105 650 / 650 Balance 250 / 250 231.25 / 231.25 -650 / -650 General: Alert, No apparent distress, Confused HEENT: Atraumatic, PERRLA, EOMI, Normocephalic Oral: Dry Mucosa Neck: Supple, No JVD, Negative Carotid Bruits Lungs: Clear to auscultation, Normal air movement Cardiovascular: Regular rate, Regular Rhythm, Normal S1, Normal S2, No murmurs Abdomen: Bowel Sounds Present, Soft, Non Tender, Non-Distended Extremities: No clubbing, No cyanosis, No edema Skin: No rashes, No breakdown Musculoskeletal: No Tenderness to Palpation of Joints or Extremities, Cachexia, Muscle Wasting Neurological: Cranial nerves II-XII grossly intact, Neuro grossly intact Psych/Mental Status: Flat Affect Laboratory Results 04/03/20 08:58: Urine Opiates Screen NEGATIVE, Urine Methadone Screen NEGATIVE, Ur Barbiturates Screen NEGATIVE, Ur Phencyclidine Scrn NEGATIVE, Ur Amphetamines Screen NEGATIVE, U Methamphetamin-MDMA NEGATIVE, U Benzodiazepines Scrn NEGATIVE, Urine Cocaine Screen NEGATIVE, U Cannabinoids Screen NEGATIVE, Ur Drug Screen Comment Current Medications Acetaminophen (Tylenol) 650 mg PO Q6H PRN PRN PRN Reason: Pain Score 1-10/Temp > 100.7 F Last Admin: 03/30/20 23:45 Dose: 650 mg Documented by: Calamine/Phenol (Calmoseptine Ointment) 1 applic TOPICAL BID [facility]; Protocol Last Admin: 04/03/20 08:15 Dose: 1 applic Documented by: Dextrose (D50w Syringe) 0 gm IV X1 PRN; Protocol PRN Reason: Hypoglycemia Enoxaparin Sodium (Lovenox) 40 mg SC DAILY [facility] Last Admin: 04/03/20 08:15 Dose: 40 mg Documented by: Glucagon () 1 mg IM .X1 PRN PRN Reason: Hypoglycemia Sodium Chloride () 250 mls @ 15 mls/hr IV .[id number] PRN PRN Reason: Saline Flush Sodium Chloride () 250 mls @ 15 mls/hr IV .[id number] PRN PRN Reason: Additional IVPB Infusion Dextrose/Sodium Chloride (Dextrose 5%/0.9% Nacl) 1,000 mls @ 75 mls/hr IV .[id number] [facility] Last Infusion: 04/02/20 09:54 Dose: 0 mls/hr Documented by: Nutritional Formula (Lactose Free) (Ensure Enlive) 120 ml PO 4X/DAY [facility] Last Admin: 04/03/20 08:10 Dose: 120 ml Documented by: Ondansetron HCl (Zofran) 4 mg IV Q8H PRN PRN PRN Reason: NAUSEA/VOMITING Last Admin: 04/01/20 17:46 Dose: 4 mg Documented by: Sodium Chloride () 10 - 40 ml IV UD PRN PRN Reason: SALINE FLUSH Last Admin: 04/01/20 17:40 Dose: 10 ml Documented by: Medical Necessity - Tobacco Use Smoking Status: Never smoker Assessment/Plan All Active Problems (Last Reviewed 03/30/20 @ 20:[address] Walt Gates MD) Altered mental status (Acute) Lactic acidosis (Acute) Weight loss, abnormal (Acute) Failure to thrive (Acute) 1. Acute metabolic encephalopathy-ruled out. Brain CT with chronic changes. No evidence of infectious process. Suspect due to underlying dementia/psychiatric process. Plan for [facility]. Metabolic/infectious/toxic etiology ruled out. 2. Cognitive impairment-patient alert and oriented during assessment today however per nursing patient refuses medication and treatments and is having extreme paranoia. Suspect underlying dementia/versus other underlying psychiatric process. [facility] consulted. Plan for placement pending facility availability and acceptance. [place] slip obtained due to imminent concern for patient safety and patient is unable to provide basic needs for herself. 3. Failure to thrive/debility- PT/OT. Dietitian consult. Vitamin D level checked which was sufficient. 4. Dehydration-suspect secondary to poor oral intake related to #1/#2. Resolved with IV fluids. 5. Bilateral lower extremity pain-lower extremity Dopplers ordered however patient refused. DVT prophylaxis-Lovenox subcu Discharge planning: Patient is medically cleared for [facility] placement. This patient was seen by CARLIE Lora under the supervision of Dr. Whiteside. <Earlene Whiteside - Last Filed: 04/03/20 17:04> - Physical Exam Vitals/I&O's: Vital Signs Temp Pulse Resp BP Pulse Ox 98.2 F 52 L 18 122/66 H 98 04/03/20 14:21 04/03/20 14:21 04/03/20 14:21 04/03/20 14:21 04/03/20 14:21 Oxygen Delivery Method Room Air Weight: 124 lb 7.991 oz Body Mass Index (BMI) 19.5 Intake and Output for Last 24 Hours 04/01/20 04/02/20 04/03/20 23:59 23:59 23:59 Intake Total 2049 / 2049 1336.25 / 1336.25 120 / 120 Output Total 1800 / 1800 1105 / 1105 900 / 900 Balance 250 / 250 231.25 / 231.25 -780 / -780 Laboratory Results 04/03/20 08:58: Urine Opiates Screen NEGATIVE, Urine Methadone Screen NEGATIVE, Ur Barbiturates Screen NEGATIVE, Ur Phencyclidine Scrn NEGATIVE, Ur Amphetamines Screen NEGATIVE, U Methamphetamin-MDMA NEGATIVE, U Benzodiazepines Scrn NEGATIVE, Urine Cocaine Screen NEGATIVE, U Cannabinoids Screen NEGATIVE, Ur Drug Screen Comment Assessment/Plan Pateint seen by Marybel SEXTON under my supervision Patient seen and examined. She had no complaints. Review of systems otherwise negative. Labs and vitals reviewed. She is due for discharge to [facility] in [place] today. o/e: Vital Signs Temp Pulse Resp BP Pulse Ox 98.2 F 52 L 18 122/66 H 98 04/03/20 14:21 04/03/20 14:21 04/03/20 14:21 04/03/20 14:21 04/03/20 14:21 [] General: Alert, Oriented x3, Cooperative HEENT: Atraumatic, PERRLA, EOMI, Normocephalic Oral: Dry Mucosa Neck: Supple, No JVD, Negative Carotid Bruits Lungs: Clear to auscultation, Normal air movement Cardiovascular: Regular rate, No murmurs Abdomen: Bowel Sounds Present, Soft, Non Tender Extremities: No edema, Capillary Refill Less than 3 Seconds Skin: No rashes, No breakdown Musculoskeletal: No Tenderness to Palpation of Joints or Extremities, Cachexia, Muscle Wasting Neurological: Cranial nerves II-XII grossly intact, Neuro grossly intact Psych/Mental Status: Flat Affect Patient is [facility]. Rest as per CARLIE Lora's notes which I have reviewed and endorsed. Inpatient E&M: [id number] Subs Hosp L2
--- NOTE | 2020-04-03 12:03 | NURSING ---
Talked with patient and explained daughter would like to talk to her on the phone. Pt does not wish to talk. Asked her if i could get Ipad and assist her with facetiming daughter. Pt again stated NO.
--- NOTE | 2020-04-03 12:27 | NURSING ---
accepted at [facility] at their [place] locations. accepting Dr. Irving.. nurse to nurse report [phone]
--- NOTE | 2020-04-03 12:59 | NURSING ---
call placed to daughter garcia. message left to inform family that patient was excepted to [facility] and we are currently arranging transportation
--- NOTE | 2020-04-03 13:00 | PCM.DC.SUM ---
<Marybel Stout - Last Filed: 04/03/20 13:26> Discharge Date and Diagnosis Date of Admission: 03/30/20 Date of Discharge: 04/03/20 - Primary Discharge Diagnosis Acute Problems: Active Problems (Last Reviewed 03/30/20 @ 20:[address] Walt Gates MD) 1. Acute metabolic encephalopathy-ruled out. Suspect due to underlying dementia/psychiatric process. 2. Cognitive impairment 3. Failure to thrive/debility 4. Dehydration 5. Bilateral lower extremity pain Hospital Course and Treatment Imaging Results: Diagnostic Data Brain CT 03/30/20 16:42 IMPRESSION: Chronic involutional changes of the brain. No acute hemorrhage Electronically Signed: Diaz Bergman MD at 17:19 EDT , Service support , Chest X-Ray 03/30/20 17:00 IMPRESSION: Chronic interstitial changes, no superimposed acute pulmonary process Electronically Signed: Diaz Bergman MD at 17:19 EDT , Service support , Consultations 04/01/20 12:20 Crisis [Consult: Mental Health/Crisis] Routine Reason for consult?: [facility] Date Notified:: 04/01/20 Time Notified:: 12:20 Operations: None Procedures: None Summary of Care Provided: The patient is a 79 year old F admitted 03/30/2020 due to altered mental status. 1. Acute metabolic encephalopathy-ruled out. Brain CT with chronic changes. No evidence of infectious process. Suspect due to underlying dementia/psychiatric process. Plan for [facility] placement. Metabolic/infectious/toxic etiology ruled out. 2. Cognitive impairment-patient alert and oriented during assessment today however per nursing patient refuses medication and treatments and is having extreme paranoia. Suspect underlying dementia/versus other underlying psychiatric process. [place] slip obtained due to imminent concern for patient safety and patient is unable to provide basic needs for herself. [facility] evaluated patient and patient accepted to [facility] in [place]. Patient medically stable for inpatient psychiatric evaluation. 3. Failure to thrive/debility- PT/OT. Dietitian consult. Vitamin D level checked which was sufficient. 4. Dehydration-suspect secondary to poor oral intake related to #1/#2. Resolved with IV fluids. 5. Bilateral lower extremity pain-lower extremity Dopplers ordered however patient refused. She denies further pain. General: Alert, No apparent distress, Confused HEENT: Atraumatic, PERRLA, EOMI, Normocephalic Oral: Dry Mucosa Neck: Supple, No JVD, Negative Carotid Bruits Lungs: Clear to auscultation, Normal air movement Cardiovascular: Regular rate, Regular Rhythm, Normal S1, Normal S2, No murmurs Abdomen: Bowel Sounds Present, Soft, Non Tender, Non-Distended Extremities: No clubbing, No cyanosis, No edema Skin: No rashes, No breakdown Musculoskeletal: No Tenderness to Palpation of Joints or Extremities, Cachexia, Muscle Wasting Neurological: Cranial nerves II-XII grossly intact, Neuro grossly intact Psych/Mental Status: Flat Affect Patient seen and examined prior to discharge. Physical assessment as noted above. Patient is medically stable for discharge to [facility]. This patient was seen by CARLIE Lora under the supervision of Dr. Whiteside. - Physical Exam Vitals/I&O's: Vital Signs Temp Pulse Resp BP Pulse Ox 98.2 F 58 L 16 137/67 H 95 04/03/20 08:08 04/03/20 08:21 04/03/20 08:08 04/03/20 08:08 04/03/20 08:08 Oxygen Delivery Method Room Air Weight: 124 lb 7.991 oz Body Mass Index (BMI) 19.5 Intake and Output for Last 24 Hours 04/01/20 04/02/20 04/03/20 23:59 23:59 23:59 Intake Total 2049 / 2049 1336.25 / 1336.25 120 / 120 Output Total 1800 / 1800 1105 / 1105 900 / 900 Balance 250 / 250 231.25 / 231.25 -780 / -780 Laboratory Results 04/03/20 08:58: Urine Opiates Screen NEGATIVE, Urine Methadone Screen NEGATIVE, Ur Barbiturates Screen NEGATIVE, Ur Phencyclidine Scrn NEGATIVE, Ur Amphetamines Screen NEGATIVE, U Methamphetamin-MDMA NEGATIVE, U Benzodiazepines Scrn NEGATIVE, Urine Cocaine Screen NEGATIVE, U Cannabinoids Screen NEGATIVE, Ur Drug Screen Comment Current Medications Acetaminophen (Tylenol) 650 mg PO Q6H PRN PRN PRN Reason: Pain Score 1-10/Temp > 100.7 F Last Admin: 03/30/20 23:45 Dose: 650 mg Documented by: Calamine/Phenol (Calmoseptine Ointment) 1 applic TOPICAL BID [facility]; Protocol Last Admin: 04/03/20 08:15 Dose: 1 applic Documented by: Dextrose (D50w Syringe) 0 gm IV X1 PRN; Protocol PRN Reason: Hypoglycemia Enoxaparin Sodium (Lovenox) 40 mg SC DAILY [facility] Last Admin: 04/03/20 08:15 Dose: 40 mg Documented by: Glucagon () 1 mg IM .X1 PRN PRN Reason: Hypoglycemia Sodium Chloride () 250 mls @ 15 mls/hr IV .[id number] PRN PRN Reason: Saline Flush Sodium Chloride () 250 mls @ 15 mls/hr IV .[id number] PRN PRN Reason: Additional IVPB Infusion Nutritional Formula (Lactose Free) (Ensure Enlive) 120 ml PO 4X/DAY [facility] Last Admin: 04/03/20 08:10 Dose: 120 ml Documented by: Ondansetron HCl (Zofran) 4 mg IV Q8H PRN PRN PRN Reason: NAUSEA/VOMITING Last Admin: 04/01/20 17:46 Dose: 4 mg Documented by: Sodium Chloride () 10 - 40 ml IV UD PRN PRN Reason: SALINE FLUSH Last Admin: 04/01/20 17:40 Dose: 10 ml Documented by: Home Medications: Medications to take at Discharge NK 03/30/20 Primary Care Physician: Agus Doherty DO [Primary Care Provider] - Disposition: Psych Hospital or Unit Minutes spent on discharge:: 35 Patient Condition:: Fair Medical Necessity - Tobacco Use Smoking Status: Never smoker Meaningful Use Info Meaningful Use Diagnoses (Choose all that apply): None applicable <Earlene Whiteside - Last Filed: 04/03/20 15:19> Hospital Course and Treatment Consultations 04/01/20 12:20 Crisis [Consult: Mental Health/Crisis] Routine Reason for consult?: [facility] Date Notified:: 04/01/20 Time Notified:: 12:20 Summary of Care Provided: Pateint seen by Marybel SEXTON under my supervision. The patient is a 79 year old F admitted on account of confusion and hallucinations and managed for acute metabolic encephalopathy. Her daughter called the paramedics. No complaints during admission and had a very flat affect and masked facies. She was managed for acute metabolic encephalopathy likely due to underlying dementia. Patient was refusing treatment during review and refused to work with therapy until last few days of admission. Infectious work-up was negative and CT of the head was also negative. She was evaluated by [facility] and patient was very paranoid and was deemed fit for [facility] inpatient admission. She however IV and refused to talk to [facility] team. She was therefore pink slipped while awaiting placement. Patient was discharged to [facility] in [facility] on 04/03/2020. She was medically stable for inpatient psychiatric care. Patient seen and examined prior to discharge. She had no complaints. Review of systems otherwise negative. Labs and vitals reviewed. Home medication reviewed and reconciled. o/e: Vital Signs Temp Pulse Resp BP Pulse Ox 98.2 F 52 L 18 122/66 H 98 04/03/20 14:04/03/20 14:04/03/20 14:04/03/20 14:04/03/20 14:21 [] General: Alert, Oriented x3, Cooperative HEENT: Atraumatic, PERRLA, EOMI, Normocephalic Oral: Dry Mucosa Neck: Supple, No JVD, Negative Carotid Bruits Lungs: Clear to auscultation, Normal air movement Cardiovascular: Regular rate, No murmurs Abdomen: Bowel Sounds Present, Soft, Non Tender Extremities: No edema, Capillary Refill Less than 3 Seconds Skin: No rashes, No breakdown Musculoskeletal: No Tenderness to Palpation of Joints or Extremities, Cachexia, Muscle Wasting Neurological: Cranial nerves II-XII grossly intact, Neuro grossly intact Psych/Mental Status: Flat Affect Patient Discharged to [facility] in [facility]. Rest as per Marybel Stout NP-C's notes which I have reviewed and endorsed. - Physical Exam Vitals/I&O's: Vital Signs Temp Pulse Resp BP Pulse Ox 98.2 F 52 L 18 122/66 H 98 04/03/20 14:04/03/20 14:04/03/20 14:04/03/20 14:04/03/20 14:21 Oxygen Delivery Method Room Air Weight: 124 lb 7.991 oz Body Mass Index (BMI) 19.5 Intake and Output for Last 24 Hours 04/01/20 04/02/20 04/03/20 23:59 23:59 23:59 Intake Total 2049 / 2049 1336.25 / 1336.25 120 / 120 Output Total 1800 / 1800 1105 / 1105 900 / 900 Balance 250 / 250 231.25 / 231.25 -780 / -780 Laboratory Results 04/03/20 08:58: Urine Opiates Screen NEGATIVE, Urine Methadone Screen NEGATIVE, Ur Barbiturates Screen NEGATIVE, Ur Phencyclidine Scrn NEGATIVE, Ur Amphetamines Screen NEGATIVE, U Methamphetamin-MDMA NEGATIVE, U Benzodiazepines Scrn NEGATIVE, Urine Cocaine Screen NEGATIVE, U Cannabinoids Screen NEGATIVE, Ur Drug Screen Comment Current Medications Acetaminophen (Tylenol) 650 mg PO Q6H PRN PRN PRN Reason: Pain Score 1-10/Temp > 100.7 F Last Admin: 03/30/20 23:45 Dose: 650 mg Documented by: Calamine/Phenol (Calmoseptine Ointment) 1 applic TOPICAL BID [facility]; Protocol Last Admin: 04/03/20 08:15 Dose: 1 applic Documented by: Dextrose (D50w Syringe) 0 gm IV X1 PRN; Protocol PRN Reason: Hypoglycemia Enoxaparin Sodium (Lovenox) 40 mg SC DAILY [facility] Last Admin: 04/03/20 08:15 Dose: 40 mg Documented by: Glucagon () 1 mg IM .X1 PRN PRN Reason: Hypoglycemia Sodium Chloride () 250 mls @ 15 mls/hr IV .[id number] PRN PRN Reason: Saline Flush Sodium Chloride () 250 mls @ 15 mls/hr IV .[id number] PRN PRN Reason: Additional IVPB Infusion Nutritional Formula (Lactose Free) (Ensure Enlive) 120 ml PO 4X/DAY [facility] Last Admin: 04/03/20 14:24 Dose: Not Given Documented by: Ondansetron HCl (Zofran) 4 mg IV Q8H PRN PRN PRN Reason: NAUSEA/VOMITING Last Admin: 04/01/20 17:46 Dose: 4 mg Documented by: Sodium Chloride () 10 - 40 ml IV UD PRN PRN Reason: SALINE FLUSH Last Admin: 04/01/20 17:40 Dose: 10 ml Documented by: Inpatient E&M: [id number] Disch Hosp
--- NOTE | 2020-04-03 13:44 | CASEMGMT ---
Social Work Note KACEY updated that pt has been pink slipped and accepted to [facility] in [place]. KACEY asked to arrange transportation. KACEY placed a call to [employer]. [facility] states that they are not in contract with [facility] so SW will need to get authorization from [facility] ([facility]) [phone] and then [facility] could transport pt. KACEY placed a call to [facility] spoke with Rossana in billing. Rossana states [employer] is not in contract with [facility], will need to arrange transportation with company that is in network. Rossana states KACEY will need to call [facility] ([phone]). SW called [facility], [facility] states they would not be able to transport pt today. KACEY placed a call back to Rossana at [facility] updated her that this worker called [facility] who stated they are not able to transport pt today. SW then transferred to [facility] [employer] transport and arranged transportation via cot for 3:00pm. Transportation form completed and placed on folder, copy on pt's chart. KACEY updated RN and Charge Nurse on transportation time. KACEY asked RN and Charge Nurse regarding allowing pt's family to visit pt before transport to facility per pt's family request. Both RN and assault amphibious vehicle officer states family is not able to do so, will need to follow up with [facility]. KACEY placed a call to pt's ZACH Meza and updated her that due to pt being pink slipped to [facility] facility, HCPOA/LW are not able to be completed at this time due to pt's psychiatric reasons at this time. Susana states understanding. Plan: [facility] in [place] today with [facility] [employer] [facility] transporting pt at 3:00pm. Ana Luisa Brito FORMULATOR COMPOUNDER, RFID DEVELOPER
--- NOTE | 2020-04-03 13:57 | PHA.DC.MR ---
Pharmacy Service has performed discharge medication reconciliation for this patient upon transport to [facility]. Patient currently has no medications on file to assess. no new medications prescribed this admission either at time of review. Home Medications NK 03/30/20
[2020-04-03 14:21] VITALS: BP 122/66; PULSE 52; RESP 18; TEMP 36.8; O2SAT 98
== END 2020-04-03 15:00 | DRG 884 ==
LOC: ED 19:16 → MS3 20:34
PROVIDERS: Nurse Practitioner Family; Admitting Provider Hospitalist; Emergency Provider Emergency Medicine; PCP Family Medicine; Referring Provider Hospitalist; Visit Provider Student in an Organized Health Care Education/Training Program
DX: F03.90 Unspecified dementia, unspecified severity, without behavioral disturbance, psychotic disturbance, mood disturbance, and anxiety (principal); Z68.1 Body mass index [BMI] 19.9 or less, adult; R41.89 Other symptoms and signs involving cognitive functions and awareness; R62.7 Adult failure to thrive; R63.4 Abnormal weight loss; E86.0 Dehydration; R32 Unspecified urinary incontinence; R80.9 Proteinuria, unspecified; R82.4 Acetonuria; R31.29 Other microscopic hematuria; M79.671 Pain in right foot; M79.672 Pain in left foot; Z87.891 Personal history of nicotine dependence
CPT/HCPCS: 36415; 51702; 70450; 71045; 80048; 80053; 80307; 81001; 82140; 82306; 82550; 82607; 83605; 83735; 84443; 85025; 85610; 85730; 93005; 97110; 97162; 97165; 97530; 97535; 97803; 99285; J7030; J7040; A4216; J2405